=== PATIENT | female | born 1990 | race Caucasian/White ===

== ENCOUNTER 2020-12-06 08:31 | Inpatient (IN) ==
[2020-12-06] MEDS ORDERED: VANCOMYCIN HCL 1,000 MG in SODIUM CHLORIDE 0.9% 250 ML IV PRN (09:02)
[2020-12-06] MEDS ORDERED: OXYTOCIN 30 UNITS/500 ML BAG IV PRN ×3 (09:02→21:32)
[2020-12-06] MEDS ORDERED: ACETAMINOPHEN 1,000 MG/100 ML VIAL IV PRN (09:02)
[2020-12-06] MEDS ORDERED: VANCOMYCIN HCL 2,000 MG in SODIUM CHLORIDE 0.9% 500 ML IV STA (09:10)
[2020-12-06] MEDS ORDERED: LABETALOL HCL 100 MG TAB PO STA (09:24)
--- NOTE | 2020-12-06 09:24 | History & Physical Report ---
Date of Service December 06, 2020 Assessment & Plan (1) Uterine contractions at greater than 20 weeks of gestation: 30-year-old G1, P0 at 38 weeks of gestation presenting with regular contractions and leakage of fluid at term, elevated blood pressures with contractions heart rate reassuring GBS positive, allergic to penicillin and cephalosporin Plan to admit, monitor, IV fluids, labs and monitor blood pressures carefully Augment contractions with low-dose Pitocin All questions were answered. (2) Spontaneous rupture of amniotic membranes: (3) GBS (group B Streptococcus carrier), +RV culture, currently : History of Present Illness Primary Care Provider: NO PCP Patient is a 30-year-old G1, P0 at 38 weeks of gestation who woke up this morning with contractions around 2 AM. They got closer and more painful and she started to leak around 7 AM. It was a small amount of clear fluid but now it turned into trickling and dripping on the floor. Patient denies vaginal bleeding, fever chills, chest pain shortness of breath. Mild ANGUIANO, no change in vision h/o recurrent ANGUIANO, migraines N&V + Her has been complicated by 1 transfer of care at 20 weeks 2 asthma, mild intermittent 3 history of depression, was on Zoloft and Klonopin until , stopped them during and restarted Zoloft about a week ago. 4 GBS bacteriuria, penicillin and cephalosporin allergy. Allergies Allergy/AdvReac Type Severity Reaction Status Date / Time amoxicillin Allergy Severe Swelling Verified 12/06/20 09:10 of Lip/Tongue/Throat Penicillins Allergy Severe Swelling Verified 12/06/20 09:10 of Lip/Tongue/Throat cefprozil [From Cefzil] Allergy Swelling Verified 12/06/20 09:19 of Lip/Tongue/Throat Home Medications Medication Instructions Recorded Confirmed Type omeprazole magnesium [Prilosec] 10 mg PO DAILY 12/06/20 12/06/20 History prenat.vits,kelsi,thu-bzre-qkkuo 1 tab PO DAILY 12/06/20 12/06/20 History [ Vitamin] sertraline [Zoloft] 50 mg PO DAILY 12/06/20 12/06/20 History Patient History Medical History Anxiety Depression Re-started Zoloft 1 week ago. Surgical History H/O wrist surgery Both wrists History of mandibular surgery [employer] History Denies history of STDs, herpes, chlamydia, gonorrhea. Review of Systems All systems reviewed & are unremarkable except as noted in HPI & below Physical Exam Constitutional: WD/WN, vitals as above well developed and + acute distress (with ctxs only) Gastrointestinal (Abdomen): normal bowel sounds, soft, nontender, no hepatosplenomegaly (Gravid, Stephen 7-8 lb) Genitourinary: normal external appearance OB Exam Abdomen: + vertex (confirmed with US, Placenta posterior) Manual OB Exam: + cervical dilation 2 cm, + cervical effacement 70% and + station -2 OB Exam Monitor Tracing: + category I Nitrazine + Results & Data ([facility]) Vital Signs (Past 12 Hours) Vital Signs Pulse Resp BP 12/06/20 09:00 22 12/06/20 08:57 60 155/103 H 12/06/20 08:47 60 150/99 H 12/06/20 08:43 76 140/99 12/06/20 08:38 55 L 152/82 H 12/06/20 08:32 158/98 H 12/06/20 08:24 164/96 H
[2020-12-06 09:30] LABS: Hematocrit (blood only) 34.9 % (37-47); Hemoglobin 11.2 g/dL (12.0-16.0); Mean Corpuscular Hemoglobin 29.5 pg (25-34); Mean Corpuscular Hgb Conc 32.1 g/dL (32-36); Mean Corpuscular Volume 91.8 fL (80-100); Mean Platelet Volume 10.6 fL (7.4-10.4); Platelet Count 243 K/uL (130-400); RDW Coefficient of Variation 16.3 % (11.5-14.5); RDW Standard Deviation 53.7 fL (36.4-46.3); White Blood Count 14.26 K/uL (4.8-10.8)
[2020-12-06 09:47] LABS: Albumin Level 2.7 gm/dl (3.4-5.0); Calcium 8.9 mg/dl (8.5-10.1); Creatinine Clr Calc Pharmacy 156.1 ml/min; Est GFR (African American) 147.9 ml/min; Est GFR (Non-African American) 127.6 ml/min
[2020-12-06 09:50] LABS: Albumin Globulin Ratio 0.7 (0.9-2); Bilirubin,Total 0.2 mg/dl (0.2-1); Globulin 3.7 gm/dl (2.5-4.0); Total Protein 6.4 gm/dl (6.4-8.2)
[2020-12-06] MEDS: LACTATED RINGER'S 1,000 ML IV PRN ×3 (10:02→19:23)
[2020-12-06] MEDS ORDERED: LABETALOL HCL 100 MG TAB PO ONE (10:09)
[2020-12-06] MEDS: ONDANSETRON INJ 2 MG/ML 2 ML VIAL IV PRN ×3 (10:13→20:43)
[2020-12-06] MEDS ORDERED: BUTORPHANOL TARTRATE 1 MG/ML VIAL IV PRN (10:23)
[2020-12-06 10:52] LABS: Rubella IgG Antibody Immune (Immune)
[2020-12-06 10:53] LABS: Hepatitis B Surf Ag Rflx Conf Neg (Neg)
[2020-12-06 11:21] LABS: Hepatitis C IgG 13Yrs+Old_Rflx Neg (Neg)
[2020-12-06] MEDS ORDERED: BUPIVACAINE 0.25% 30 ML VIAL ONE (12:14)
[2020-12-06] MEDS ORDERED: fentaNYL citrate 100 MCG/2 ML VIAL ONE ×2 (12:14→16:12)
[2020-12-06] MEDS ORDERED: SODIUM CHLORIDE 0.9% INJ 10 ML VIAL ONE (12:14)
[2020-12-06] MEDS ORDERED: ePHEDrine sulfate 50 MG/ML AMP ONE (12:14)
[2020-12-06] MEDS ORDERED: fentaNYL 2MCG/ML ROPIVACAINE 1.25MG/ML 100 ML BAG EPI ONE (12:15)
[2020-12-06 12:37] LABS: Appearance Urine Clear (Clear); Bacteria Urine Automated Negative (Negative); Bilirubin Urine Negative (Negative); Blood Urine 2+ (Negative); Color Urine Dark Yellow; Glucose Urine UA Negative (Negative); Ketones Urine 1+ (Negative); Leukocyte Esterase Urine Negative (Negative); Nitrite Urine Negative (Negative); Protein Urine Trace (Negative); Urobilinogen Urine Negative (Negative)
[2020-12-06 12:49] LABS: Mucus Urine Present (None Prsent)
[2020-12-06 12:50] LABS: RBC Urine Automated 0-4 /hpf (0-4)
--- NOTE | 2020-12-06 12:55 | Anesthesiology Consultation ---
Date of Service December 06, 2020 Assessment & Plan Chart Review Chart Review: Acceptable Risk for Labor Epidural Consults Requested none History Height/Weight Height: 5 ft 4 in Weight: 80.286 kg Allergies Allergy/AdvReac Type Severity Reaction Status Date / Time amoxicillin Allergy Severe Swelling Verified 12/06/20 09:10 of Lip/Tongue/Throat Penicillins Allergy Severe Swelling Verified 12/06/20 09:10 of Lip/Tongue/Throat cefprozil [From Cefzil] Allergy Swelling Verified 12/06/20 09:19 of Lip/Tongue/Throat Medications Home Medications Medication Instructions Recorded Confirmed Last Taken albuterol mcg INHALATION [id number] 12/06/20 Unknown omeprazole magnesium [Prilosec] 10 mg PO DAILY 12/06/20 12/06/20 12/06/20 prenat.vits,kelsi,hey-qkat-cyrjh 1 tab PO DAILY 12/06/20 12/06/20 12/05/20 [ Vitamin] sertraline [Zoloft] 50 mg PO DAILY 12/06/20 12/06/20 12/05/20 Active Medications Generic Name Dose Route Start Last Admin Trade Name Freq PRN Reason Stop Dose Admin Butorphanol Tartrate 1 mg 12/06/20 10:23 12/06/20 10:45 Butorphanol Tartrate 1 Mg/Ml Vial IV 01/05/21 10:22 1 mg Q3HWA PRN Administration Pain Acetaminophen 1,000 mg in 100 mls @ 400 mls/hr 12/06/20 09:02 12/06/20 10:03 Ofirmev IV 12/09/20 09:01 Infused Q8H PRN Infusion Pain Lactated Ringer's 1,000 mls @ 150 mls/hr 12/06/20 09:02 12/06/20 11:30 Lr IV 12/08/20 09:01 999 mls/hr .[id number] PRN Infusion L&D Protocol Protocol Ondansetron HCl 4 mg 12/06/20 09:02 12/06/20 10:13 Ondansetron Inj 2 Mg/Ml 2 Ml Vial IV 01/05/21 09:01 4 mg Q4H PRN Administration Nausea Past Medical History Medical History Anxiety Depression Re-started Zoloft 1 week ago. Past Surgical History Surgical History H/O wrist surgery Both wrists History of mandibular surgery TMJ Social History Smoking Status: Never smoker Hx Alcohol Use: No Hx Substance Use: No Physical Exam Vital Signs Last Vital Signs Temp 36.8 C 12/06/20 11:38 Pulse 82 12/06/20 12:52 Resp 20 12/06/20 11:38 BP 134/93 12/06/20 12:52 Pulse Ox 99 12/06/20 12:50 Testing Laboratory Results 12/06/20 09:17 12/06/20 09:48 Urine Color Dark Yellow 12/06/20 Unknown Urine Appearance Clear (Clear) 12/06/20 Unknown Urine pH 6.0 (4.5-7.5) 12/06/20 Unknown Ur Specific [place] 1.030 (1.000-1.030) 12/06/20 Unknown Urine Protein Trace (Negative) H 12/06/20 Unknown Urine Glucose (UA) Negative (Negative) 12/06/20 Unknown Urine Ketones 1+ (Negative) H 12/06/20 Unknown Urine Nitrite Negative (Negative) 12/06/20 Unknown Ur Leukocyte Esterase Negative (Negative) 12/06/20 Unknown Urine WBC (Auto) 1-5 /hpf (0-5) 12/06/20 Unknown Urine RBC (Auto) 0-4 /hpf (0-4) 12/06/20 Unknown U Hyaline Cast (Auto) 1-5 /lpf (0-5) 12/06/20 Unknown U Epithel Cells (Auto) 10-20 /lpf (0-5) H 12/06/20 Unknown Urine Bacteria (Auto) Negative (Negative) 12/06/20 Unknown Blood Type A Negative 12/06/20 09:17 Antibody Screen POSITIVE A 12/06/20 09:17
[2020-12-06] MEDS ORDERED: NALOXONE HCL 0.4 MG/1 ML VIAL/CARP IV PRN (12:57)
[2020-12-06] MEDS ORDERED: diphenhydrAMINE 50 MG/ML VIAL IV PRN (12:57)
[2020-12-06] MEDS ORDERED: fentaNYL 2MCG/ML ROPIVACAINE 1.25MG/ML 100 ML BAG EPI PRN (12:57)
[2020-12-06] MEDS ORDERED: NALOXONE HCL 1 MG in SODIUM CHLORIDE 0.9% 1000ML 1,000 ML IV PRN (12:57)
[2020-12-06] MEDS ORDERED: ePHEDrine sulfate 50 MG/ML AMP IV PRN (12:57)
[2020-12-06 13:12] LABS: Protein Creatinine Ratio Urine 0.1 (0-0.2); Total Protein Urine Random 23.9 mg/dl (0-11.9)
--- NOTE | 2020-12-06 13:29 | Obstetrical Progress Note ---
Date of Service December 06, 2020 Assessment & Plan Admission and Anticipated Discharge Date Admission Date: December 06, 2020 Subjective Patient is reevaluated She is comfortable, received epidural Labs normal BP's stable FHR categ I Ctxs spaced out Cervix unchanged Will start Pitocin Continue to monitor closely Lab Results 12/06/20 12/06/20 12/06/20 Range/Units 09:17 09:17 09:17 WBC 14.26 H (4.8-10.8) K/uL RBC 3.80 L (4.2-5.4) M/uL Hgb 11.2 L (12.0-16.0) g/dL Hct 34.9 L (37-47) % MCV 91.8 (80-100) fL MCH 29.5 (25-34) pg MCHC 32.1 (32-36) g/dL RDW Std Deviation 53.7 H (36.4-46.3) fL RDW Coeff of Jw 16.3 H (11.5-14.5) % Plt Count 243 (130-400) K/uL MPV 10.6 H (7.4-10.4) fL Sodium 139 (136-145) mmol/L Potassium 4.0 (3.5-5.1) mmol/L Chloride 108 H (98-107) mmol/L Carbon Dioxide 23 (21-32) mmol/L Anion Gap 8.0 (3-11) BUN 8 (7-18) mg/dl Creatinine 0.55 L (0.6-1.2) mg/dl Est Cr Clr Drug Dosing 156.1 ml/min Est GFR ( Amer) 147.9 ml/min Est GFR (Non-Af Amer) 127.6 ml/min BUN/Creatinine Ratio 15.0 (10-20) Glucose 81 (70-99) mg/dl Calcium 8.9 (8.5-10.1) mg/dl Total Bilirubin 0.2 (0.2-1) mg/dl AST 14 L (15-37) U/L ALT 14 (12-78) U/L Alkaline Phosphatase 107 (45-117) U/L Lactate Dehydrogenase (84-246) U/L Total Protein 6.4 (6.4-8.2) gm/dl Albumin 2.7 L (3.4-5.0) gm/dl Globulin 3.7 (2.5-4.0) gm/dl Albumin/Globulin Ratio 0.7 L (0.9-2) Urine Color Urine Appearance (Clear) Urine pH (4.5-7.5) Ur Specific [place] (1.000-1.030) Urine Protein (Negative) Urine Glucose (UA) (Negative) Urine Ketones (Negative) Urine Blood (Negative) Urine Nitrite (Negative) Urine Bilirubin (Negative) Urine Urobilinogen (Negative) Ur Leukocyte Esterase (Negative) Urine WBC (Auto) (0-5) /hpf Urine RBC (Auto) (0-4) /hpf U Hyaline Cast (Auto) (0-5) /lpf U Epithel Cells (Auto) (0-5) /lpf Urine Bacteria (Auto) (Negative) Urine Mucus (None Prsent) Ur Random Creatinine mg/dl U Random Total Protein (0-11.9) mg/dl Protein/Creatinin Ratio (0-0.2) COVID-19 Eval Order Hep Bs Antigen (Neg) Hepatitis C Antibody (Neg) HIV 1&2 Ab/P24 Ag 4thGn (Neg) Rubella IgG Antibody (Immune) SARS-CoV-2, RNA, NAAT (NEGATIVE) Blood Type A Negative Antibody Screen POSITIVE A Antibody Identification Anti-D due to RhIg 12/06/20 12/06/20 12/06/20 Range/Units 09:17 09:35 09:35 WBC (4.8-10.8) K/uL RBC (4.2-5.4) M/uL Hgb (12.0-16.0) g/dL Hct (37-47) % MCV (80-100) fL MCH (25-34) pg MCHC (32-36) g/dL RDW Std Deviation (36.4-46.3) fL RDW Coeff of Jw (11.5-14.5) % Plt Count (130-400) K/uL MPV (7.4-10.4) fL Sodium (136-145) mmol/L Potassium (3.5-5.1) mmol/L Chloride (98-107) mmol/L Carbon Dioxide (21-32) mmol/L Anion Gap (3-11) BUN (7-18) mg/dl Creatinine (0.6-1.2) mg/dl Est Cr Clr Drug Dosing ml/min Est GFR ( Amer) ml/min Est GFR (Non-Af Amer) ml/min BUN/Creatinine Ratio (10-20) Glucose (70-99) mg/dl Calcium (8.5-10.1) mg/dl Total Bilirubin (0.2-1) mg/dl AST (15-37) U/L ALT (12-78) U/L Alkaline Phosphatase (45-117) U/L Lactate Dehydrogenase 178 (84-246) U/L Total Protein (6.4-8.2) gm/dl Albumin (3.4-5.0) gm/dl Globulin (2.5-4.0) gm/dl Albumin/Globulin Ratio (0.9-2) Urine Color Urine Appearance (Clear) Urine pH (4.5-7.5) Ur Specific [place] (1.000-1.030) Urine Protein (Negative) Urine Glucose (UA) (Negative) Urine Ketones (Negative) Urine Blood (Negative) Urine Nitrite (Negative) Urine Bilirubin (Negative) Urine Urobilinogen (Negative) Ur Leukocyte Esterase (Negative) Urine WBC (Auto) (0-5) /hpf Urine RBC (Auto) (0-4) /hpf U Hyaline Cast (Auto) (0-5) /lpf U Epithel Cells (Auto) (0-5) /lpf Urine Bacteria (Auto) (Negative) Urine Mucus (None Prsent) Ur Random Creatinine mg/dl U Random Total Protein (0-11.9) mg/dl Protein/Creatinin Ratio (0-0.2) COVID-19 [facility] Hep Bs Antigen (Neg) Hepatitis C Antibody (Neg) HIV 1&2 Ab/P24 Ag 4thGn (Neg) Rubella IgG Antibody (Immune) SARS-CoV-2, RNA, NAAT NEGATIVE (NEGATIVE) Blood Type Antibody Screen Antibody Identification 12/06/20 12/06/20 12/06/20 Range/Units 09:48 09:48 09:48 WBC (4.8-10.8) K/uL RBC (4.2-5.4) M/uL Hgb (12.0-16.0) g/dL Hct (37-47) % MCV (80-100) fL MCH (25-34) pg MCHC (32-36) g/dL RDW Std Deviation (36.4-46.3) fL RDW Coeff of Jw (11.5-14.5) % Plt Count (130-400) K/uL MPV (7.4-10.4) fL Sodium (136-145) mmol/L Potassium (3.5-5.1) mmol/L Chloride (98-107) mmol/L Carbon Dioxide (21-32) mmol/L Anion Gap (3-11) BUN (7-18) mg/dl Creatinine (0.6-1.2) mg/dl Est Cr Clr Drug Dosing ml/min Est GFR ( Amer) ml/min Est GFR (Non-Af Amer) ml/min BUN/Creatinine Ratio (10-20) Glucose 79 (70-99) mg/dl Calcium (8.5-10.1) mg/dl Total Bilirubin (0.2-1) mg/dl AST (15-37) U/L ALT (12-78) U/L Alkaline Phosphatase (45-117) U/L Lactate Dehydrogenase (84-246) U/L Total Protein (6.4-8.2) gm/dl Albumin (3.4-5.0) gm/dl Globulin (2.5-4.0) gm/dl Albumin/Globulin Ratio (0.9-2) Urine Color Urine Appearance (Clear) Urine pH (4.5-7.5) Ur Specific [place] (1.000-1.030) Urine Protein (Negative) Urine Glucose (UA) (Negative) Urine Ketones (Negative) Urine Blood (Negative) Urine Nitrite (Negative) Urine Bilirubin (Negative) Urine Urobilinogen (Negative) Ur Leukocyte Esterase (Negative) Urine WBC (Auto) (0-5) /hpf Urine RBC (Auto) (0-4) /hpf U Hyaline Cast (Auto) (0-5) /lpf U Epithel Cells (Auto) (0-5) /lpf Urine Bacteria (Auto) (Negative) Urine Mucus (None Prsent) Ur Random Creatinine mg/dl U Random Total Protein (0-11.9) mg/dl Protein/Creatinin Ratio (0-0.2) COVID-19 Eval Order Hep Bs Antigen Neg (Neg) Hepatitis C Antibody Neg (Neg) HIV 1&2 Ab/P24 Ag 4thGn Neg (Neg) Rubella IgG Antibody Immune (Immune) SARS-CoV-2, RNA, NAAT (NEGATIVE) Blood Type Antibody Screen Antibody Identification 12/06/20 12/06/20 Range/Units Unknown Unknown WBC (4.8-10.8) K/uL RBC (4.2-5.4) M/uL Hgb (12.0-16.0) g/dL Hct (37-47) % MCV (80-100) fL MCH (25-34) pg MCHC (32-36) g/dL RDW Std Deviation (36.4-46.3) fL RDW Coeff of Jw (11.5-14.5) % Plt Count (130-400) K/uL MPV (7.4-10.4) fL Sodium (136-145) mmol/L Potassium (3.5-5.1) mmol/L Chloride (98-107) mmol/L Carbon Dioxide (21-32) mmol/L Anion Gap (3-11) BUN (7-18) mg/dl Creatinine (0.6-1.2) mg/dl Est Cr Clr Drug Dosing ml/min Est GFR ( Amer) ml/min Est GFR (Non-Af Amer) ml/min BUN/Creatinine Ratio (10-20) Glucose (70-99) mg/dl Calcium (8.5-10.1) mg/dl Total Bilirubin (0.2-1) mg/dl AST (15-37) U/L ALT (12-78) U/L Alkaline Phosphatase (45-117) U/L Lactate Dehydrogenase (84-246) U/L Total Protein (6.4-8.2) gm/dl Albumin (3.4-5.0) gm/dl Globulin (2.5-4.0) gm/dl Albumin/Globulin Ratio (0.9-2) Urine Color Dark Yellow Urine Appearance Clear (Clear) Urine pH 6.0 (4.5-7.5) Ur Specific [place] 1.030 (1.000-1.030) Urine Protein Trace H (Negative) Urine Glucose (UA) Negative (Negative) Urine Ketones 1+ H (Negative) Urine Blood 2+ H (Negative) Urine Nitrite Negative (Negative) Urine Bilirubin Negative (Negative) Urine Urobilinogen Negative (Negative) Ur Leukocyte Esterase Negative (Negative) Urine WBC (Auto) 1-5 (0-5) /hpf Urine RBC (Auto) 0-4 (0-4) /hpf U Hyaline Cast (Auto) 1-5 (0-5) /lpf U Epithel Cells (Auto) 10-20 H (0-5) /lpf Urine Bacteria (Auto) Negative (Negative) Urine Mucus Present A (None Prsent) Ur Random Creatinine 178.0 mg/dl U Random Total Protein 23.9 H (0-11.9) mg/dl Protein/Creatinin Ratio 0.1 (0-0.2) COVID-19 Eval Order Hep Bs Antigen (Neg) Hepatitis C Antibody (Neg) HIV 1&2 Ab/P24 Ag 4thGn (Neg) Rubella IgG Antibody (Immune) SARS-CoV-2, RNA, NAAT (NEGATIVE) Blood Type Antibody Screen Antibody Identification Results & Data ([facility]) Vital Signs (Past 12 Hours) Vital Signs Temp Pulse Resp BP Pulse Ox 12/06/20 13:25 75 124/72 99 12/06/20 13:20 86 99 12/06/20 13:19 81 133/73 12/06/20 13:15 83 131/73 99 12/06/20 13:10 83 99 12/06/20 13:09 80 18 132/72 12/06/20 13:05 82 98 12/06/20 13:02 78 18 132/74 12/06/20 13:00 84 18 128/76 99 12/06/20 12:58 85 18 123/71 12/06/20 12:56 76 18 127/70 12/06/20 12:55 101 H 97 12/06/20 12:54 85 20 140/84 12/06/20 12:52 82 134/93 12/06/20 12:50 82 20 132/93 99 12/06/20 12:48 104 H 20 131/92 12/06/20 12:46 79 20 130/86 12/06/20 12:45 77 99 12/06/20 12:44 87 20 132/84 12/06/20 12:42 64 20 129/87 12/06/20 12:40 90 20 142/93 H 99 12/06/20 12:38 53 L 20 143/93 H 12/06/20 12:35 75 98 12/06/20 12:33 84 20 144/82 H 12/06/20 12:30 83 100 12/06/20 12:27 57 L 22 171/105 H 12/06/20 12:25 64 99 12/06/20 12:22 55 L 24 169/103 H 12/06/20 12:20 84 99 12/06/20 12:15 52 L 97 12/06/20 12:10 76 172/102 H 98 12/06/20 11:38 36.8 C 20 12/06/20 11:28 68 139/86 12/06/20 10:49 62 143/95 H 12/06/20 10:33 51 L 154/80 H 12/06/20 10:19 50 L 164/99 H 12/06/20 10:02 67 148/105 H 12/06/20 10:01 55 L 159/93 H 12/06/20 09:33 54 L 137/100 12/06/20 09:18 55 L 165/113 H 12/06/20 09:13 18 12/06/20 09:00 22 12/06/20 08:57 60 155/103 H 12/06/20 08:47 60 150/99 H 12/06/20 08:43 76 140/99 12/06/20 08:38 55 L 152/82 H 12/06/20 08:32 158/98 H 12/06/20 08:24 164/96 H
[2020-12-06] MEDS ORDERED: LIDOCAINE 2% MPF LOCAL 5 ML VIAL INFIL ONE (16:13)
--- NOTE | 2020-12-06 16:32 | Communication Note ---
Date of Service: December 06, 2020 Called by staff for pt c/o increasing pain with contractions. Bolused existing epidural catheter with 2% lidocaine plus fentanyl 100 mcg. VSS.
--- NOTE | 2020-12-06 16:33 | Obstetrical Progress Note ---
Date of Service December 06, 2020 Assessment & Plan Admission and Anticipated Discharge Date Admission Date: December 06, 2020 Subjective Patient feels pressure VE; 6/ 90%/ 0, ant fontanelle at 2 o'clock position, OP FHR categ I, occasional variable decels, good variability and accels [place] ctxs q 2-3 min Continue to monitor Aniticipate Results & Data ([facility]) Vital Signs (Past 12 Hours) Vital Signs Temp Pulse Resp BP Pulse Ox 12/06/20 16:30 78 96 12/06/20 16:25 88 95 12/06/20 16:20 83 97 12/06/20 16:15 74 98 12/06/20 16:14 86 93 12/06/20 16:10 76 98 12/06/20 16:05 75 98 12/06/20 16:00 76 129/79 99 12/06/20 15:55 77 98 12/06/20 15:50 63 99 12/06/20 15:45 78 100 12/06/20 15:40 68 98 12/06/20 15:35 76 98 12/06/20 15:30 74 98 12/06/20 15:25 70 97 12/06/20 15:20 77 99 12/06/20 15:17 36.9 C 64 16 124/69 12/06/20 15:15 72 98 12/06/20 15:14 80 94 12/06/20 15:10 71 98 12/06/20 15:05 85 99 12/06/20 15:02 84 138/67 12/06/20 15:00 88 98 12/06/20 14:55 94 H 98 12/06/20 14:50 96 H 99 12/06/20 14:47 98 H 127/75 12/06/20 14:45 94 H 99 12/06/20 14:40 103 H 98 12/06/20 14:35 85 99 12/06/20 14:32 97 H 18 128/77 12/06/20 14:30 74 97 12/06/20 14:25 82 95 12/06/20 14:20 85 97 12/06/20 14:17 80 117/69 12/06/20 14:15 75 98 12/06/20 14:10 68 97 12/06/20 14:09 81 93 12/06/20 14:05 74 97 12/06/20 14:02 61 131/66 12/06/20 14:00 68 96 12/06/20 13:55 86 97 12/06/20 13:50 70 96 12/06/20 13:45 82 98 12/06/20 13:44 81 128/82 12/06/20 13:40 87 98 12/06/20 13:39 74 129/72 12/06/20 13:35 69 98 12/06/20 13:34 65 20 117/68 12/06/20 13:30 97 H 97 12/06/20 13:29 56 L 18 128/71 12/06/20 13:25 75 124/72 99 12/06/20 13:20 86 99 12/06/20 13:19 81 18 133/73 12/06/20 13:15 83 131/73 99 12/06/20 13:10 83 99 12/06/20 13:09 80 18 132/72 12/06/20 13:05 82 98 12/06/20 13:02 78 18 132/74 12/06/20 13:00 36.7 C 84 18 128/76 99 12/06/20 12:58 85 18 123/71 12/06/20 12:56 76 18 127/70 12/06/20 12:55 101 H 97 12/06/20 12:54 85 20 140/84 12/06/20 12:52 82 134/93 12/06/20 12:50 82 20 132/93 99 12/06/20 12:48 104 H 20 131/92 12/06/20 12:46 79 20 130/86 12/06/20 12:45 77 99 12/06/20 12:44 87 20 132/84 12/06/20 12:42 64 20 129/87 12/06/20 12:40 90 20 142/93 H 99 12/06/20 12:38 53 L 20 143/93 H 12/06/20 12:35 75 98 12/06/20 12:33 84 20 144/82 H 12/06/20 12:30 83 100 12/06/20 12:27 57 L 22 171/105 H 12/06/20 12:25 64 99 12/06/20 12:22 55 L 24 169/103 H 12/06/20 12:20 84 99 12/06/20 12:15 52 L 97 12/06/20 12:10 76 172/102 H 98 12/06/20 11:38 36.8 C 20 12/06/20 11:28 68 139/86 12/06/20 10:49 62 143/95 H 12/06/20 10:33 51 L 154/80 H 12/06/20 10:19 50 L 164/99 H 12/06/20 10:02 67 148/105 H 12/06/20 10:01 55 L 159/93 H 12/06/20 09:33 54 L 137/100 12/06/20 09:18 55 L 165/113 H 12/06/20 09:13 18 12/06/20 09:00 22 12/06/20 08:57 60 155/103 H 12/06/20 08:47 60 150/99 H 12/06/20 08:43 76 140/99 12/06/20 08:38 55 L 152/82 H 12/06/20 08:32 158/98 H 12/06/20 08:24 164/96 H
--- NOTE | 2020-12-06 20:23 | Obstetrical Progress Note ---
Date of Service December 06, 2020 Assessment & Plan Admission and Anticipated Discharge Date Admission Date: December 06, 2020 Subjective Patient was found to be fuly dilated and has pressure Started to push with last 2 ctxs VE: caput succedaneum visible at introitus, +2 to +3 FHR 130-150's, early decels with ctxs, had a decel after 1st push, recovered on left lateral side, now at 150's Continue to monitor closely Continue to push on her side Results & Data ([facility]) Vital Signs (Past 12 Hours) Vital Signs Temp Pulse Resp BP Pulse Ox 12/06/20 20:15 122 H 100 12/06/20 20:10 115 H 95 12/06/20 20:09 119 H 94 12/06/20 20:05 122 H 95 12/06/20 20:00 78 97 12/06/20 19:58 76 142/80 H 12/06/20 19:55 88 97 12/06/20 19:50 87 97 12/06/20 19:45 95 H 97 12/06/20 19:44 89 94 12/06/20 19:40 95 H 100 12/06/20 19:35 97 H 100 12/06/20 19:30 83 98 12/06/20 19:29 86 153/79 H 12/06/20 19:25 83 100 12/06/20 19:20 77 97 12/06/20 19:15 98 H 96 12/06/20 19:12 96 H 89 L 12/06/20 19:10 81 98 12/06/20 19:05 37.2 C 88 18 98 12/06/20 19:00 84 98 12/06/20 18:58 82 130/84 12/06/20 18:55 87 100 12/06/20 18:50 91 H 100 12/06/20 18:47 72 91 12/06/20 18:45 88 95 12/06/20 18:40 96 H 100 12/06/20 18:37 84 91 12/06/20 18:35 96 H 100 12/06/20 18:30 96 H 100 12/06/20 18:29 90 142/89 H 12/06/20 18:25 92 H 100 12/06/20 18:20 101 H 94 12/06/20 18:15 93 H 99 12/06/20 18:10 98 H 100 12/06/20 18:05 87 99 12/06/20 18:00 91 H 100 12/06/20 17:59 82 125/80 12/06/20 17:55 83 98 12/06/20 17:50 96 H 98 12/06/20 17:45 80 99 12/06/20 17:40 102 H 99 12/06/20 17:35 89 97 12/06/20 17:30 76 98 12/06/20 17:28 97 H 127/87 12/06/20 17:25 88 97 12/06/20 17:20 74 96 12/06/20 17:15 73 97 12/06/20 17:10 69 97 12/06/20 17:05 69 97 12/06/20 17:00 37.0 C 70 16 109/66 96 12/06/20 16:55 70 96 12/06/20 16:50 71 95 12/06/20 16:45 71 96 12/06/20 16:40 68 96 12/06/20 16:35 68 95 12/06/20 16:31 66 110/66 12/06/20 16:30 78 96 12/06/20 16:25 88 95 12/06/20 16:20 83 97 12/06/20 16:15 74 98 12/06/20 16:14 86 93 12/06/20 16:10 76 98 12/06/20 16:05 75 98 12/06/20 16:00 76 129/79 99 12/06/20 15:55 77 98 12/06/20 15:50 63 99 12/06/20 15:45 78 100 12/06/20 15:40 68 98 12/06/20 15:35 76 98 12/06/20 15:30 74 98 12/06/20 15:25 70 97 12/06/20 15:20 77 99 12/06/20 15:17 36.9 C 64 16 124/69 12/06/20 15:15 72 98 12/06/20 15:14 80 94 12/06/20 15:10 71 98 12/06/20 15:05 85 99 12/06/20 15:02 84 138/67 12/06/20 15:00 88 98 12/06/20 14:55 94 H 98 12/06/20 14:50 96 H 99 12/06/20 14:47 98 H 127/75 12/06/20 14:45 94 H 99 12/06/20 14:40 103 H 98 12/06/20 14:35 85 99 12/06/20 14:32 97 H 18 128/77 12/06/20 14:30 74 97 12/06/20 14:25 82 95 12/06/20 14:20 85 97 12/06/20 14:17 80 117/69 12/06/20 14:15 75 98 12/06/20 14:10 68 97 12/06/20 14:09 81 93 12/06/20 14:05 74 97 12/06/20 14:02 61 131/66 12/06/20 14:00 68 96 12/06/20 13:55 86 97 12/06/20 13:50 70 96 12/06/20 13:45 82 98 12/06/20 13:44 81 128/82 12/06/20 13:40 87 98 12/06/20 13:39 74 129/72 12/06/20 13:35 69 98 12/06/20 13:34 65 20 117/68 12/06/20 13:30 97 H 97 12/06/20 13:29 56 L 18 128/71 12/06/20 13:25 75 124/72 99 12/06/20 13:20 86 99 12/06/20 13:19 81 18 133/73 12/06/20 13:15 83 131/73 99 12/06/20 13:10 83 99 12/06/20 13:09 80 18 132/72 12/06/20 13:05 82 98 12/06/20 13:02 78 18 132/74 12/06/20 13:00 36.7 C 84 18 128/76 99 12/06/20 12:58 85 18 123/71 12/06/20 12:56 76 18 127/70 12/06/20 12:55 101 H 97 12/06/20 12:54 85 20 140/84 12/06/20 12:52 82 134/93 12/06/20 12:50 82 20 132/93 99 12/06/20 12:48 104 H 20 131/92 12/06/20 12:46 79 20 130/86 12/06/20 12:45 77 99 12/06/20 12:44 87 20 132/84 12/06/20 12:42 64 20 129/87 12/06/20 12:40 90 20 142/93 H 99 12/06/20 12:38 53 L 20 143/93 H 12/06/20 12:35 75 98 12/06/20 12:33 84 20 144/82 H 12/06/20 12:30 83 100 12/06/20 12:27 57 L 22 171/105 H 12/06/20 12:25 64 99 12/06/20 12:22 55 L 24 169/103 H 12/06/20 12:20 84 99 12/06/20 12:15 52 L 97 12/06/20 12:10 76 172/102 H 98 12/06/20 11:38 36.8 C 20 12/06/20 11:28 68 139/86 12/06/20 10:49 62 143/95 H 12/06/20 10:33 51 L 154/80 H 12/06/20 10:19 50 L 164/99 H 12/06/20 10:02 67 148/105 H 12/06/20 10:01 55 L 159/93 H 12/06/20 09:33 54 L 137/100 12/06/20 09:18 55 L 165/113 H 12/06/20 09:13 18 12/06/20 09:00 22 12/06/20 08:57 60 155/103 H 12/06/20 08:47 60 150/99 H 12/06/20 08:43 76 140/99 12/06/20 08:38 55 L 152/82 H 12/06/20 08:32 158/98 H 12/06/20 08:24 164/96 H
[2020-12-06] MEDS ORDERED: MINERAL OIL 30 ML UDC ONE (21:11)
[2020-12-06] MEDS ORDERED: DIPHTHERIA/TETANUS/PERTUSSIS 0.5 ML SYR/VIAL IM ONE (21:32)
[2020-12-06] MEDS ORDERED: MEASLES, MUMPS & RUBELLA VIRUS VIAL SQ ONE (21:32)
[2020-12-06] MEDS ORDERED: BENZOCAINE 20% AER SPR 82.5 GM CAN EXT PRN (21:32)
[2020-12-06] MEDS ORDERED: bisacodyL 10 MG SUPP PR PRN (21:32)
[2020-12-06] MEDS ORDERED: HYDROCORTISONE ACETATE 25 MG SUPP PR PRN (21:32)
[2020-12-06] MEDS ORDERED: SUPERCREAM 0.870% 15 GM JAR EXT PRN (21:32)
[2020-12-07] MEDS: IBUPROFEN 600 MG TAB PO PRN ×4 (00:57→19:31)
--- NOTE | 2020-12-07 01:18 | Anesthesia Procedure Note ---
Date of Service December 07, 2020 Anesthesia Post Epidural Note Vital Signs Vital Signs: Temp Pulse Resp BP Pulse Ox 37.7 C H 93 H 20 148/76 H 99 12/06/20 21:00 12/06/20 23:39 12/06/20 21:00 12/06/20 23:39 12/06/20 21:26 Pain Intensity Bilateral Abdomen: Pain Intensity: 0 Notes Mental Status: alert / awake / arousable Nausea / Vomiting: adequately controlled Pain: adequately controlled Airway Patency, RR, SpO2: stable & adequate BP & HR: stable & adequate Hydration State: stable & adequate Neuraxial Anesthesia: was administered and sensory block is resolving Anesthetic Complications: no major complications apparent and Pt Satisfied with anesthetic care Epidural: Removed without complications and With tip intact
[2020-12-07 07:19] LABS: Hematocrit (blood only) 31.5 % (37-47); Hemoglobin 9.8 g/dL (12.0-16.0); Mean Corpuscular Hemoglobin 29.1 pg (25-34); Mean Corpuscular Hgb Conc 31.1 g/dL (32-36); Mean Corpuscular Volume 93.5 fL (80-100); Mean Platelet Volume 11.6 fL (7.4-10.4); Platelet Count 241 K/uL (130-400); RDW Coefficient of Variation 16.7 % (11.5-14.5); RDW Standard Deviation 56.6 fL (36.4-46.3); Red Blood Count 3.37 M/uL (4.2-5.4); White Blood Count 24.59 K/uL (4.8-10.8)
--- NOTE | 2020-12-07 07:49 | Progress Note ---
Date of Service December 07, 2020 Assessment & Plan Admission and Anticipated Discharge Date Admission Date: December 06, 2020 Subjective PPD#1 doing well out of bed tolerating diet not passing gas no edema neg Tracie's Physical Exam Constitutional: WD/WN, vitals as above comfortable abdomen soft and non- tender fundus firm no edema tent d/c in AM Results & Data ([facility]) Vital Signs (Past 12 Hours) Vital Signs Temp Pulse Pulse Pulse Resp BP BP 12/07/20 03:30 36.5 C 84 16 137/81 12/07/20 00:30 37.2 C 76 18 132/84 12/06/20 23:39 93 H 148/76 H 12/06/20 23:24 98 H 152/88 H 12/06/20 23:09 96 H 149/87 H 12/06/20 22:54 82 151/89 H 12/06/20 22:39 72 141/80 H 12/06/20 22:17 93 H 134/79 12/06/20 22:09 112 H 135/89 12/06/20 21:54 93 H 134/82 12/06/20 21:33 102 H 151/87 H 12/06/20 21:28 103 H 147/87 H 12/06/20 21:26 103 H 12/06/20 21:21 96 H 12/06/20 21:16 117 H 12/06/20 21:13 104 H 12/06/20 21:10 102 H 12/06/20 21:05 112 H 12/06/20 21:00 37.7 C H 95 H 20 180/119 H 12/06/20 20:55 113 H 12/06/20 20:50 90 12/06/20 20:45 97 H 12/06/20 20:44 102 H 12/06/20 20:40 104 H 12/06/20 20:35 102 H 12/06/20 20:30 86 12/06/20 20:29 103 H 122/58 L 12/06/20 20:28 109 H 12/06/20 20:25 111 H 12/06/20 20:22 95 H 12/06/20 20:20 102 H 12/06/20 20:15 122 H 12/06/20 20:10 115 H 12/06/20 20:09 119 H 12/06/20 20:05 122 H 12/06/20 20:00 78 12/06/20 19:58 76 142/80 H 12/06/20 19:55 88 12/06/20 19:50 87 Pulse Ox 12/07/20 03:30 97 12/07/20 00:30 97 12/06/20 23:39 12/06/20 23:24 12/06/20 23:09 12/06/20 22:54 12/06/20 22:39 12/06/20 22:17 12/06/20 22:09 12/06/20 21:54 12/06/20 21:33 12/06/20 21:28 12/06/20 21:26 99 12/06/20 21:21 100 12/06/20 21:16 99 12/06/20 21:13 82 L 12/06/20 21:10 99 12/06/20 21:05 94 12/06/20 21:00 69 L 12/06/20 20:55 98 12/06/20 20:50 99 12/06/20 20:45 99 12/06/20 20:44 91 12/06/20 20:40 100 12/06/20 20:35 100 12/06/20 20:30 98 12/06/20 20:29 12/06/20 20:28 93 12/06/20 20:25 98 12/06/20 20:22 91 12/06/20 20:20 81 L 12/06/20 20:15 100 12/06/20 20:10 95 12/06/20 20:09 94 12/06/20 20:05 95 12/06/20 20:00 97 12/06/20 19:58 12/06/20 19:55 97 12/06/20 19:50 97 Laboratory Results Laboratory Results - last 48 hr 12/06/20 12/06/20 12/06/20 09:17 09:17 09:17 WBC 14.26 H RBC 3.80 L Hgb 11.2 L Hct 34.9 L MCV 91.8 MCH 29.5 MCHC 32.1 RDW Std Deviation 53.7 H RDW Coeff of Jw 16.3 H Plt Count 243 MPV 10.6 H Sodium 139 Potassium 4.0 Chloride 108 H Carbon Dioxide 23 Anion Gap 8.0 BUN 8 Creatinine 0.55 L Est Cr Clr Drug Dosing 156.1 Est GFR ( Amer) 147.9 Est GFR (Non-Af Amer) 127.6 BUN/Creatinine Ratio 15.0 Glucose 81 Calcium 8.9 Total Bilirubin 0.2 AST 14 L ALT 14 Alkaline Phosphatase 107 Lactate Dehydrogenase Total Protein 6.4 Albumin 2.7 L Globulin 3.7 Albumin/Globulin Ratio 0.7 L Urine Color Urine Appearance Urine pH Ur Specific [place] Urine Protein Urine Glucose (UA) Urine Ketones Urine Blood Urine Nitrite Urine Bilirubin Urine Urobilinogen Ur Leukocyte Esterase Urine WBC (Auto) Urine RBC (Auto) U Hyaline Cast (Auto) U Epithel Cells (Auto) Urine Bacteria (Auto) Urine Mucus Ur Random Creatinine U Random Total Protein Protein/Creatinin Ratio RPR COVID-19 Eval Order Hep Bs Antigen Hepatitis C Antibody HIV 1&2 Ab/P24 Ag 4thGn Rubella IgG Antibody SARS-CoV-2, RNA, NAAT Blood Type A Negative Antibody Screen POSITIVE A Antibody Identification Anti-D due to RhIg Antibody ID Comment 12/06/20 12/06/20 12/06/20 09:17 09:35 09:35 WBC RBC Hgb Hct MCV MCH MCHC RDW Std Deviation RDW Coeff of Jw Plt Count MPV Sodium Potassium Chloride Carbon Dioxide Anion Gap BUN Creatinine Est Cr Clr Drug Dosing Est GFR ( Amer) Est GFR (Non-Af Amer) BUN/Creatinine Ratio Glucose Calcium Total Bilirubin AST ALT Alkaline Phosphatase Lactate Dehydrogenase 178 Total Protein Albumin Globulin Albumin/Globulin Ratio Urine Color Urine Appearance Urine pH Ur Specific [place] Urine Protein Urine Glucose (UA) Urine Ketones Urine Blood Urine Nitrite Urine Bilirubin Urine Urobilinogen Ur Leukocyte Esterase Urine WBC (Auto) Urine RBC (Auto) U Hyaline Cast (Auto) U Epithel Cells (Auto) Urine Bacteria (Auto) Urine Mucus Ur Random Creatinine U Random Total Protein Protein/Creatinin Ratio RPR COVID-19 Eval [email or web address] Bs Antigen Hepatitis C Antibody HIV 1&2 Ab/P24 Ag 4thGn Rubella IgG Antibody SARS-CoV-2, RNA, NAAT NEGATIVE Blood Type Antibody Screen Antibody Identification Antibody ID Comment 12/06/20 12/06/20 12/06/20 09:48 09:48 09:48 WBC RBC Hgb Hct MCV MCH MCHC RDW Std Deviation RDW Coeff of Jw Plt Count MPV Sodium Potassium Chloride Carbon Dioxide Anion Gap BUN Creatinine Est Cr Clr Drug Dosing Est GFR ( Amer) Est GFR (Non-Af Amer) BUN/Creatinine Ratio Glucose 79 Calcium Total Bilirubin AST ALT Alkaline Phosphatase Lactate Dehydrogenase Total Protein Albumin Globulin Albumin/Globulin Ratio Urine Color Urine Appearance Urine pH Ur Specific [place] Urine Protein Urine Glucose (UA) Urine Ketones Urine Blood Urine Nitrite Urine Bilirubin Urine Urobilinogen Ur Leukocyte Esterase Urine WBC (Auto) Urine RBC (Auto) U Hyaline Cast (Auto) U Epithel Cells (Auto) Urine Bacteria (Auto) Urine Mucus Ur Random Creatinine U Random Total Protein Protein/Creatinin Ratio RPR COVID-19 Eval Order Hep Bs Antigen Neg Hepatitis C Antibody Neg HIV 1&2 Ab/P24 Ag 4thGn Neg Rubella IgG Antibody Immune SARS-CoV-2, RNA, NAAT Blood Type Antibody Screen Antibody Identification Antibody ID Comment 12/06/20 12/06/20 12/06/20 09:48 Unknown Unknown WBC RBC Hgb Hct MCV MCH MCHC RDW Std Deviation RDW Coeff of Jw Plt Count MPV Sodium Potassium Chloride Carbon Dioxide Anion Gap BUN Creatinine Est Cr Clr Drug Dosing Est GFR ( Amer) Est GFR (Non-Af Amer) BUN/Creatinine Ratio Glucose Calcium Total Bilirubin AST ALT Alkaline Phosphatase Lactate Dehydrogenase Total Protein Albumin Globulin Albumin/Globulin Ratio Urine Color Dark Yellow Urine Appearance Clear Urine pH 6.0 Ur Specific [place] 1.030 Urine Protein Trace H Urine Glucose (UA) Negative Urine Ketones 1+ H Urine Blood 2+ H Urine Nitrite Negative Urine Bilirubin Negative Urine Urobilinogen Negative Ur Leukocyte Esterase Negative Urine WBC (Auto) 1-5 Urine RBC (Auto) 0-4 U Hyaline Cast (Auto) 1-5 U Epithel Cells (Auto) 10-20 H Urine Bacteria (Auto) Negative Urine Mucus Present A Ur Random Creatinine 178.0 U Random Total Protein 23.9 H Protein/Creatinin Ratio 0.1 RPR Nonreactive COVID-19 Eval Order Hep Bs Antigen Hepatitis C Antibody HIV 1&2 Ab/P24 Ag 4thGn Rubella IgG Antibody SARS-CoV-2, RNA, NAAT Blood Type Antibody Screen Antibody Identification Antibody ID Comment 12/07/20 06:10 WBC 24.59 H D RBC 3.37 L Hgb 9.8 L Hct 31.5 L MCV 93.5 MCH 29.1 MCHC 31.1 L RDW Std Deviation 56.6 H RDW Coeff of Jw 16.7 H Plt Count 241 MPV 11.6 H Sodium Potassium Chloride Carbon Dioxide Anion Gap BUN Creatinine Est Cr Clr Drug Dosing Est GFR ( Amer) Est GFR (Non-Af Amer) BUN/Creatinine Ratio Glucose Calcium Total Bilirubin AST ALT Alkaline Phosphatase Lactate Dehydrogenase Total Protein Albumin Globulin Albumin/Globulin Ratio Urine Color Urine Appearance Urine pH Ur Specific [place] Urine Protein Urine Glucose (UA) Urine Ketones Urine Blood Urine Nitrite Urine Bilirubin Urine Urobilinogen Ur Leukocyte Esterase Urine WBC (Auto) Urine RBC (Auto) U Hyaline Cast (Auto) U Epithel Cells (Auto) Urine Bacteria (Auto) Urine Mucus Ur Random Creatinine U Random Total Protein Protein/Creatinin Ratio RPR COVID-19 Eval Order Hep Bs Antigen Hepatitis C Antibody HIV 1&2 Ab/P24 Ag 4thGn Rubella IgG Antibody SARS-CoV-2, RNA, NAAT Blood Type Antibody Screen Antibody Identification Antibody ID Comment
--- NOTE | 2020-12-07 08:05 | Delivery Summary ---
DATE OF DELIVERY: 12/06/2020. TIME: 2116 hours. DETAILS OF DELIVERY: The patient was found to be fully dilated and desired to push. She pushed for about an hour and 12 minutes and delivered the head without difficulty. Shoulders were delivered with minimal traction. Baby was handed off to the mother where mouth and nose were suctioned. Cord was clamped x2 and cut. Baby was handed off to the waiting pediatric team. Cord blood was obtained. Vagina and perineum were checked for lacerations. There were only superficial labial lacerations on both sides, they were very first degree. Vagina and perineum were intact. Those were repaired with 3-0 Vicryl on an SH needle in a continuous manner. Excellent hemostasis was achieved. Placenta was found to be in the vagina, delivered spontaneously as intact and complete. Uterus was explored and found to be empty. Lower segment was cleared of all clots and debris. EBL was 200 mL. Mom and baby tolerated the procedure well. Sponge, lap, and needle counts were correct x2. Baby was a viable male . No complications happened and I was present during whole procedure. Job ID: [id number] [facility]
[2020-12-07] MEDS: FERROUS SULFATE 325 MG TAB PO SCH (09:02)
[2020-12-07] MEDS: PRENATAL VITAMIN 1 TAB PO SCH (09:02)
[2020-12-07] MEDS: DOCUSATE SODIUM 100 MG CAP PO SCH ×2 (09:02→21:29)
[2020-12-07] MEDS: ACETAMINOPHEN 325 MG TAB PO PRN ×2 (14:03→21:29)
[2020-12-07] MEDS ORDERED: bisacodyL 5 MG TABEC PO SCH (20:00)
[2020-12-08] MEDS: IBUPROFEN 600 MG TAB PO PRN ×2 (00:02→08:45)
[2020-12-08] MEDS: ACETAMINOPHEN 325 MG TAB PO PRN (03:39)
[2020-12-08 06:20] LABS: Hematocrit (blood only) 31.5 % (37-47); Hemoglobin 9.9 g/dL (12.0-16.0)
[2020-12-08] MEDS: PRENATAL VITAMIN 1 TAB PO SCH (08:48)
[2020-12-08] MEDS: FERROUS SULFATE 325 MG TAB PO SCH (08:49)
[2020-12-08] MEDS: DOCUSATE SODIUM 100 MG CAP PO SCH (08:49)
--- NOTE | 2020-12-08 10:18 | Obstetrical Progress Note ---
Date of Service December 08, 2020 Assessment & Plan Admission and Anticipated Discharge Date Admission Date: December 06, 2020 Subjective Patient is seen and examined. She feels well, no complaints. Ambulating without dizziness Voiding without difficulty Tolerating regular diet with out N&V Bleeding is minimal No fever/ chills/ CP/ SOB/ N&V/ Leg pain Breast feeding without problems Vital Signs Temp Pulse Resp BP Pulse Ox 12/08/20 07:53 36.7 C 75 18 126/86 97 12/08/20 03:25 36.6 C 65 16 137/90 99 12/07/20 23:15 36.4 C L 58 L 16 127/85 100 Lab Results 12/06/20 12/06/20 12/06/20 Range/Units 09:17 09:17 09:17 WBC 14.26 H (4.8-10.8) K/uL RBC 3.80 L (4.2-5.4) M/uL Hgb 11.2 L (12.0-16.0) g/dL Hct 34.9 L (37-47) % MCV 91.8 (80-100) fL MCH 29.5 (25-34) pg MCHC 32.1 (32-36) g/dL RDW Std Deviation 53.7 H (36.4-46.3) fL RDW Coeff of Jw 16.3 H (11.5-14.5) % Plt Count 243 (130-400) K/uL MPV 10.6 H (7.4-10.4) fL Sodium 139 (136-145) mmol/L Potassium 4.0 (3.5-5.1) mmol/L Chloride 108 H (98-107) mmol/L Carbon Dioxide 23 (21-32) mmol/L Anion Gap 8.0 (3-11) BUN 8 (7-18) mg/dl Creatinine 0.55 L (0.6-1.2) mg/dl Est Cr Clr Drug Dosing 156.1 ml/min Est GFR ( Amer) 147.9 ml/min Est GFR (Non-Af Amer) 127.6 ml/min BUN/Creatinine Ratio 15.0 (10-20) Glucose 81 (70-99) mg/dl Calcium 8.9 (8.5-10.1) mg/dl Total Bilirubin 0.2 (0.2-1) mg/dl AST 14 L (15-37) U/L ALT 14 (12-78) U/L Alkaline Phosphatase 107 (45-117) U/L Lactate Dehydrogenase (84-246) U/L Total Protein 6.4 (6.4-8.2) gm/dl Albumin 2.7 L (3.4-5.0) gm/dl Globulin 3.7 (2.5-4.0) gm/dl Albumin/Globulin Ratio 0.7 L (0.9-2) Urine Color Urine Appearance (Clear) Urine pH (4.5-7.5) Ur Specific [place] (1.000-1.030) Urine Protein (Negative) Urine Glucose (UA) (Negative) Urine Ketones (Negative) Urine Blood (Negative) Urine Nitrite (Negative) Urine Bilirubin (Negative) Urine Urobilinogen (Negative) Ur Leukocyte Esterase (Negative) Urine WBC (Auto) (0-5) /hpf Urine RBC (Auto) (0-4) /hpf U Hyaline Cast (Auto) (0-5) /lpf U Epithel Cells (Auto) (0-5) /lpf Urine Bacteria (Auto) (Negative) Urine Mucus (None Prsent) Ur Random Creatinine mg/dl U Random Total Protein (0-11.9) mg/dl Protein/Creatinin Ratio (0-0.2) RPR (Nonreactive) COVID-19 Eval Order Hep Bs Antigen (Neg) Hepatitis C Antibody (Neg) HIV 1&2 Ab/P24 Ag 4thGn (Neg) Rubella IgG Antibody (Immune) SARS-CoV-2, RNA, NAAT (NEGATIVE) Blood Type A Negative Antibody Screen POSITIVE A Antibody Identification Anti-D due to RhIg Antibody ID Comment 12/06/20 12/06/20 12/06/20 Range/Units 09:17 09:35 09:35 WBC (4.8-10.8) K/uL RBC (4.2-5.4) M/uL Hgb (12.0-16.0) g/dL Hct (37-47) % MCV (80-100) fL MCH (25-34) pg MCHC (32-36) g/dL RDW Std Deviation (36.4-46.3) fL RDW Coeff of Jw (11.5-14.5) % Plt Count (130-400) K/uL MPV (7.4-10.4) fL Sodium (136-145) mmol/L Potassium (3.5-5.1) mmol/L Chloride (98-107) mmol/L Carbon Dioxide (21-32) mmol/L Anion Gap (3-11) BUN (7-18) mg/dl Creatinine (0.6-1.2) mg/dl Est Cr Clr Drug Dosing ml/min Est GFR ( Amer) ml/min Est GFR (Non-Af Amer) ml/min BUN/Creatinine Ratio (10-20) Glucose (70-99) mg/dl Calcium (8.5-10.1) mg/dl Total Bilirubin (0.2-1) mg/dl AST (15-37) U/L ALT (12-78) U/L Alkaline Phosphatase (45-117) U/L Lactate Dehydrogenase 178 (84-246) U/L Total Protein (6.4-8.2) gm/dl Albumin (3.4-5.0) gm/dl Globulin (2.5-4.0) gm/dl Albumin/Globulin Ratio (0.9-2) Urine Color Urine Appearance (Clear) Urine pH (4.5-7.5) Ur Specific [place] (1.000-1.030) Urine Protein (Negative) Urine Glucose (UA) (Negative) Urine Ketones (Negative) Urine Blood (Negative) Urine Nitrite (Negative) Urine Bilirubin (Negative) Urine Urobilinogen (Negative) Ur Leukocyte Esterase (Negative) Urine WBC (Auto) (0-5) /hpf Urine RBC (Auto) (0-4) /hpf U Hyaline Cast (Auto) (0-5) /lpf U Epithel Cells (Auto) (0-5) /lpf Urine Bacteria (Auto) (Negative) Urine Mucus (None Prsent) Ur Random Creatinine mg/dl U Random Total Protein (0-11.9) mg/dl Protein/Creatinin Ratio (0-0.2) RPR (Nonreactive) COVID-19 Eval [email or web address] Hep Bs Antigen (Neg) Hepatitis C Antibody (Neg) HIV 1&2 Ab/P24 Ag 4thGn (Neg) Rubella IgG Antibody (Immune) SARS-CoV-2, RNA, NAAT NEGATIVE (NEGATIVE) Blood Type Antibody Screen Antibody Identification Antibody ID Comment 12/06/20 12/06/20 12/06/20 Range/Units 09:48 09:48 09:48 WBC (4.8-10.8) K/uL RBC (4.2-5.4) M/uL Hgb (12.0-16.0) g/dL Hct (37-47) % MCV (80-100) fL MCH (25-34) pg MCHC (32-36) g/dL RDW Std Deviation (36.4-46.3) fL RDW Coeff of Jw (11.5-14.5) % Plt Count (130-400) K/uL MPV (7.4-10.4) fL Sodium (136-145) mmol/L Potassium (3.5-5.1) mmol/L Chloride (98-107) mmol/L Carbon Dioxide (21-32) mmol/L Anion Gap (3-11) BUN (7-18) mg/dl Creatinine (0.6-1.2) mg/dl Est Cr Clr Drug Dosing ml/min Est GFR ( Amer) ml/min Est GFR (Non-Af Amer) ml/min BUN/Creatinine Ratio (10-20) Glucose 79 (70-99) mg/dl Calcium (8.5-10.1) mg/dl Total Bilirubin (0.2-1) mg/dl AST (15-37) U/L ALT (12-78) U/L Alkaline Phosphatase (45-117) U/L Lactate Dehydrogenase (84-246) U/L Total Protein (6.4-8.2) gm/dl Albumin (3.4-5.0) gm/dl Globulin (2.5-4.0) gm/dl Albumin/Globulin Ratio (0.9-2) Urine Color Urine Appearance (Clear) Urine pH (4.5-7.5) Ur Specific [place] (1.000-1.030) Urine Protein (Negative) Urine Glucose (UA) (Negative) Urine Ketones (Negative) Urine Blood (Negative) Urine Nitrite (Negative) Urine Bilirubin (Negative) Urine Urobilinogen (Negative) Ur Leukocyte Esterase (Negative) Urine WBC (Auto) (0-5) /hpf Urine RBC (Auto) (0-4) /hpf U Hyaline Cast (Auto) (0-5) /lpf U Epithel Cells (Auto) (0-5) /lpf Urine Bacteria (Auto) (Negative) Urine Mucus (None Prsent) Ur Random Creatinine mg/dl U Random Total Protein (0-11.9) mg/dl Protein/Creatinin Ratio (0-0.2) RPR (Nonreactive) COVID-19 Eval Order Hep Bs Antigen Neg (Neg) Hepatitis C Antibody Neg (Neg) HIV 1&2 Ab/P24 Ag 4thGn Neg (Neg) Rubella IgG Antibody Immune (Immune) SARS-CoV-2, RNA, NAAT (NEGATIVE) Blood Type Antibody Screen Antibody Identification Antibody ID Comment 12/06/20 12/06/20 12/06/20 Range/Units 09:48 Unknown Unknown WBC (4.8-10.8) K/uL RBC (4.2-5.4) M/uL Hgb (12.0-16.0) g/dL Hct (37-47) % MCV (80-100) fL MCH (25-34) pg MCHC (32-36) g/dL RDW Std Deviation (36.4-46.3) fL RDW Coeff of Jw (11.5-14.5) % Plt Count (130-400) K/uL MPV (7.4-10.4) fL Sodium (136-145) mmol/L Potassium (3.5-5.1) mmol/L Chloride (98-107) mmol/L Carbon Dioxide (21-32) mmol/L Anion Gap (3-11) BUN (7-18) mg/dl Creatinine (0.6-1.2) mg/dl Est Cr Clr Drug Dosing ml/min Est GFR ( Amer) ml/min Est GFR (Non-Af Amer) ml/min BUN/Creatinine Ratio (10-20) Glucose (70-99) mg/dl Calcium (8.5-10.1) mg/dl Total Bilirubin (0.2-1) mg/dl AST (15-37) U/L ALT (12-78) U/L Alkaline Phosphatase (45-117) U/L Lactate Dehydrogenase (84-246) U/L Total Protein (6.4-8.2) gm/dl Albumin (3.4-5.0) gm/dl Globulin (2.5-4.0) gm/dl Albumin/Globulin Ratio (0.9-2) Urine Color Dark Yellow Urine Appearance Clear (Clear) Urine pH 6.0 (4.5-7.5) Ur Specific [place] 1.030 (1.000-1.030) Urine Protein Trace H (Negative) Urine Glucose (UA) Negative (Negative) Urine Ketones 1+ H (Negative) Urine Blood 2+ H (Negative) Urine Nitrite Negative (Negative) Urine Bilirubin Negative (Negative) Urine Urobilinogen Negative (Negative) Ur Leukocyte Esterase Negative (Negative) Urine WBC (Auto) 1-5 (0-5) /hpf Urine RBC (Auto) 0-4 (0-4) /hpf U Hyaline Cast (Auto) 1-5 (0-5) /lpf U Epithel Cells (Auto) 10-20 H (0-5) /lpf Urine Bacteria (Auto) Negative (Negative) Urine Mucus Present A (None Prsent) Ur Random Creatinine 178.0 mg/dl U Random Total Protein 23.9 H (0-11.9) mg/dl Protein/Creatinin Ratio 0.1 (0-0.2) RPR Nonreactive (Nonreactive) COVID-19 Eval Order Hep Bs Antigen (Neg) Hepatitis C Antibody (Neg) HIV 1&2 Ab/P24 Ag 4thGn (Neg) Rubella IgG Antibody (Immune) SARS-CoV-2, RNA, NAAT (NEGATIVE) Blood Type Antibody Screen Antibody Identification Antibody ID Comment 12/07/20 12/08/20 Range/Units 06:10 06:00 WBC 24.59 H D (4.8-10.8) K/uL RBC 3.37 L (4.2-5.4) M/uL Hgb 9.8 L 9.9 L (12.0-16.0) g/dL Hct 31.5 L 31.5 L (37-47) % MCV 93.5 (80-100) fL MCH 29.1 (25-34) pg MCHC 31.1 L (32-36) g/dL RDW Std Deviation 56.6 H (36.4-46.3) fL RDW Coeff of Jw 16.7 H (11.5-14.5) % Plt Count 241 (130-400) K/uL MPV 11.6 H (7.4-10.4) fL Sodium (136-145) mmol/L Potassium (3.5-5.1) mmol/L Chloride (98-107) mmol/L Carbon Dioxide (21-32) mmol/L Anion Gap (3-11) BUN (7-18) mg/dl Creatinine (0.6-1.2) mg/dl Est Cr Clr Drug Dosing ml/min Est GFR ( Amer) ml/min Est GFR (Non-Af Amer) ml/min BUN/Creatinine Ratio (10-20) Glucose (70-99) mg/dl Calcium (8.5-10.1) mg/dl Total Bilirubin (0.2-1) mg/dl AST (15-37) U/L ALT (12-78) U/L Alkaline Phosphatase (45-117) U/L Lactate Dehydrogenase (84-246) U/L Total Protein (6.4-8.2) gm/dl Albumin (3.4-5.0) gm/dl Globulin (2.5-4.0) gm/dl Albumin/Globulin Ratio (0.9-2) Urine Color Urine Appearance (Clear) Urine pH (4.5-7.5) Ur Specific [place] (1.000-1.030) Urine Protein (Negative) Urine Glucose (UA) (Negative) Urine Ketones (Negative) Urine Blood (Negative) Urine Nitrite (Negative) Urine Bilirubin (Negative) Urine Urobilinogen (Negative) Ur Leukocyte Esterase (Negative) Urine WBC (Auto) (0-5) /hpf Urine RBC (Auto) (0-4) /hpf U Hyaline Cast (Auto) (0-5) /lpf U Epithel Cells (Auto) (0-5) /lpf Urine Bacteria (Auto) (Negative) Urine Mucus (None Prsent) Ur Random Creatinine mg/dl U Random Total Protein (0-11.9) mg/dl Protein/Creatinin Ratio (0-0.2) RPR (Nonreactive) COVID-19 Eval Order Hep Bs Antigen (Neg) Hepatitis C Antibody (Neg) HIV 1&2 Ab/P24 Ag 4thGn (Neg) Rubella IgG Antibody (Immune) SARS-CoV-2, RNA, NAAT (NEGATIVE) Blood Type Antibody Screen Antibody Identification Antibody ID Comment Vital Signs Temp Pulse Resp BP BP Pulse Ox 12/08/20 07:53 36.7 C 75 18 126/86 97 12/08/20 03:25 36.6 C 65 16 137/90 99 12/07/20 23:15 36.4 C L 58 L 16 127/85 100 12/07/20 19:23 36.8 C 74 18 135/93 98 12/07/20 17:00 36.7 C 62 18 132/86 12/07/20 14:00 119/75 12/07/20 11:35 36.7 C 61 16 143/90 H 149/90 H 98 PE: General: Alert, orientedx3, NAD Abd: soft, NT, fundus firm, below Umbilicus Perineum intact, Lochia rubra minimal Ext; NT, no edema AP: 30 yo s/p , ppd# 2 VSS Afebrile doing well Continue routine care All questions were answered D/C home after CBC is complete Discussed when to call Results & Data ([facility]) Vital Signs (Past 12 Hours) Vital Signs Temp Pulse Resp BP Pulse Ox 12/08/20 07:53 36.7 C 75 18 126/86 97 12/08/20 03:25 36.6 C 65 16 137/90 99 12/07/20 23:15 36.4 C L 58 L 16 127/85 100
[2020-12-08 10:23] LABS: Basophils # (auto) 0.05 K/uL (0-0.2); Basophils % (auto) 0.3 %; Eosinophils # (auto) 0.23 K/uL (0-0.5); Eosinophils % (auto) 1.6 %; Hematocrit (blood only) 34.5 % (37-47); Hemoglobin 10.7 g/dL (12.0-16.0); Immature Granulocytes # (auto) 0.05 K/uL (0.00-0.02); Immature Granulocytes % (auto) 0.3 %; Lymphocytes % (auto) 19.3 %; Mean Corpuscular Hemoglobin 30.1 pg (25-34); Mean Corpuscular Volume 96.9 fL (80-100); Mean Platelet Volume 10.4 fL (7.4-10.4); Monocytes # (auto) 1.18 K/uL (0.11-0.59); Monocytes % (auto) 8.1 %; Neutrophils % (auto) 70.4 %; Platelet Count 248 K/uL (130-400); RDW Coefficient of Variation 16.9 % (11.5-14.5); RDW Standard Deviation 59.2 fL (36.4-46.3); Red Blood Count 3.56 M/uL (4.2-5.4); White Blood Count 14.51 K/uL (4.8-10.8)
== END 2020-12-08 12:40 | disposition home or self-care (01) | DRG 807 ==
LOC: OPB 08:31 → 4S1 08:37 → 4S2 12-07